=== PATIENT | female | born 1990 | race Caucasian/White ===

== ENCOUNTER 2018-04-04 15:33 | Emergency (ER) | payer BC ==
--- NOTE | 2018-04-04 15:53 | ER Report ---
History and Physical Time Seen By MD: 15:47 Hx. of Stated Complaint: headache, lower back pain HPI/ROS CHIEF COMPLAINT: headache and back pain HISTORY OF PRESENT ILLNESS: Pt on sunday slipped on ice and landed on her back and hit her head on the ground. Was witnessed by her . Pt had no loc per but does not recall the event. Pt has had nausuea, fatigue, dizziness since it occurred. PT also has pain in lower back since it occurred. No trouble with bowel or bladder. Pt using ibuprofen 600mg 4 x a day for discomfort. Pt has a remote hx of migraines and states that today the symptoms returned. + photophobia with her headache. Came her to be checked.back pain does radiate to r hip but not down leg. REVIEW OF SYSTEMS: Constitutional: No fever, no chills. Eyes: No discharge, + photophobia ENT: No sore throat. Cardiovascular: No chest pain, no palpitations. Respiratory: No cough, no shortness of breath. Gastrointestinal: No abdominal pain,+ nausea, no vomiting. Genitourinary: No hematuria. Musculoskeletal: + back pain. Skin: No rashes. Neurological: + headache Allergies: Coded Allergies: No Known Allergies (Verified Allergy, Unknown, 04/04/18) Past Medical/Surgical History Pmhx: insomnia, migraines Pshx: shoulder Reviewed Nurses Notes: Yes Hx Alcohol Use: No Constitutional Vital Sign - Last 24 Hours 04/04/18 04/04/18 04/04/18 04/04/18 15:33 15:38 15:42 15:45 Temp 98.4 Pulse 68 77 Resp 18 B/P (MAP) 118/75 (89) 118/75 112/55 (74) Pulse Ox 95 99 O2 Delivery Room Air Room Air 04/04/18 04/04/18 16:03 16:15 Pulse 65 B/P (MAP) 108/63 (78) Pulse Ox 96 O2 Delivery Room Air Physical Exam General Appearance: The patient is alert, has no immediate need for airway protection and no signs of toxicity. Eyes: Pupils equal and round no pallor or injection, EOMI, nl fundus exam ENT: no pharyngeal erythema or exudates, Mucous membranes are moist, TM are nl b/l, neg hemotympanums Respiratory: There are no retractions, lungs are clear to auscultation. Cardiovascular: Regular rate and rhythm. pulses are equal and symmetrical Gastrointestinal: Abdomen is soft and non tender, no masses, bowel sounds normal, no guarding, no rigidity or rebound Neurological: Cranial nerves II-XII grossly intact, no sensory or motor loss Skin: Warm and dry, no rashes. Musculoskeletal: Neck is supple non tender, no vertebral tenderness Extremities are nontender, nonswollen and have full range of motion. DIFFERENTIAL DIAGNOSIS: After history and physical exam differential diagnosis was considered for concussion, migraines, closed head injury, intracranial bleed, back contusion, compression fx, lumbar radiculopathy Medical Decision Making ED Course/Re-evaluation ED Course CT head and image spine PT refused test stating she has IUD and will sign a waiver. 04/04/2018 5:02:11 pm Spoke with pt at length about her imaging results. Pt initiallly refused pain medication but now would like something for her headache. Did offer IV for hydration and medication but prefers oral and then to go home. Will give a lortab. Will also give off of school tomorrow so she can rest. Decision to Disposition Date: Apr 04, 2018 Decision to Disposition Time: 17:03 Depart Departure Latest Vital Signs Vital Signs Date Time Temp Pulse Resp B/P (MAP) Pulse Ox O2 Delivery O2 Flow Rate FiO2 04/04/18 16:15 108/63 (78) 04/04/18 16:03 65 96 Room Air 04/04/18 15:42 98.4 18 Impression: Primary Impression: Concussion Additional Impressions: LOW BACK PAIN Migraine headache Condition: Condition Unchanged Disposition: HOME OR SELF-CARE Departure Forms: ER Transition Record, Medications Reconciliation, Off Work/School Form, School or Work Release?: School Number of days to be released: 2 Patient Portal Information Patient Instructions: Concussion (ED) Additional Instructions: Your cat scan and plain films did not show an acute injury. You do have a concussion. It is important to rest. TV, computers, reading can all worsen your headache. Motrin (advil, ibuprofen) 600mg every 8 hours as needed for headache. Hydrocodone with tylenol (script) one every 4 hours as needed for headache. Problem Qualifiers Primary Impression: Concussion Encounter type: initial encounter Loss of consciousness presence/duration: without LOC Qualified Codes: S06.0X0A - Concussion without loss of consciousness, initial encounter Additional Impressions: Migraine headache Migraine type: unspecified Status migrainosus presence: without status migrainosus Intractability: not intractable Qualified Codes: G43.909 - Migraine, unspecified, not intractable, without status migrainosus EDGAR YOUNG DO Apr 04, 2018 15:53
--- NOTE | 2018-04-04 16:15 | RADIOLOGY IMAGING REPORT ---
FACILITY: [facility] - [place] PATIENT NAME: Rosario Ambriz : 1990 MR: [id number] V: [id number] EXAM DATE: ORDERING PHYSICIAN: EDGAR YOUNG TECHNOLOGIST: Location: [facility] - [place] Patient: Rosario Ambriz : 1990 Visit/Account:[id number] Date of Sevice: 04/04/2018 XR THORACIC SPINE 3 V COMPARISONS: None. ADDITIONAL PERTINENT HISTORY: Fall onto back FINDINGS: Vertebral body heights and alignment: Minimal scoliotic curvature convex to the right centered at T7. Vertebral bodies: Negative. Disc spaces: Negative. Cervicothoracic junction: Negative. Surrounding soft tissues: Negative. IMPRESSION: 1. Minimal scoliotic curvature convex to the right centered at T7. 2. No acute appearing bony abnormalities. Report Dictated By: Anant Kidd MD at 04/04/2018 4:10 PM Report E-Signed By: Anant Kidd MD at 04/04/2018 4:11 PM WSN:[id number]
--- NOTE | 2018-04-04 16:18 | RADIOLOGY IMAGING REPORT ---
FACILITY: [facility] PATIENT NAME: Rosario Ambriz : 1990 MR: [id number] V: [id number] EXAM DATE: ORDERING PHYSICIAN: EDGAR YOUNG TECHNOLOGIST: Location: [facility] - [place] Patient: Rosario Ambriz : 1990 Visit/Account:[id number] Date of Sevice: 04/04/2018 L-SPINE >4 VIEWS INDICATION: Back pain after fall on ice. COMPARISON: None available FINDINGS: 4 views of the lumbar spine. There are 5 nonrib-bearing lumbar vertebral bodies. The vert ebral bodies are aligned. No compression fracture, bone lesion or spondylolysis. No degenerative webb ges. The endplates are maintained. Pedicles well seen. Soft tissues are unremarkable. IUD seen in the pelvis. IMPRESSION: Unremarkable exam. No acute abnormality. Report Dictated By: Otis Marion at 04/04/2018 4:10 PM Report E-Signed By: Otis Marion at 04/04/2018 4:12 PM WSN:[id number]
--- NOTE | 2018-04-04 16:31 | RADIOLOGY IMAGING REPORT ---
FACILITY: [facility] PATIENT NAME: Rosario Ambriz : 1990 MR: [id number] V: [id number] EXAM DATE: ORDERING PHYSICIAN: EDGAR YOUNG TECHNOLOGIST: Location: [facility] - [place] Patient: Rosario Ambriz : 1990 Visit/Account:[id number] Date of Sevice: 04/04/2018 EXAMINATION: Head CT without intravenous contrast HISTORY: Slipped on ice and hit head on Sunday. Posterior skull pain and headache. Light sensitivi ty. Nausea. COMPARISON: None. TECHNIQUE: Contiguous axial images were obtained from the skull base to the vertex without intraven ous contrast. Sagittal and coronal reformatted images are also submitted. One of the following dose optimization techniques was utilized in the performance of this exam: Autom ated exposure control; adjustment of the mA and/or kV according to the patient's size; or use of an i terative reconstruction technique. Specific details can be referenced in the facility's radiology C T exam operational policy. FINDINGS: Brain and intracranial structures: Ventricles and sulci are normal in size. The basal cisterns are p atent. Renteria-white matter differentiation is maintained. No midline shift, acute hemorrhage, acute infarct, or mass. Calvarium / scalp: Negative. No acute fracture. Skull base / visualized face: Negative. Visualized sinuses / orbits: Negative. IMPRESSION: No acute intracranial abnormality. Report Dictated By: Rogerio Dave MD at 04/04/2018 4:17 PM Report E-Signed By: Rogerio Dave MD at 04/04/2018 4:25 PM WSN:[id number]
[2018-04-04 17:00] VITALS: BP 103/65
[2018-04-04] MEDS ORDERED: APAP/HYDROCODONE 325/5 TAB PO ONE (17:05)
[2018-04-04] MEDS ORDERED: LOR5/325 PO (17:05)
== END 2018-04-04 17:16 | disposition home or self-care (01) ==
LOC: ER 15:41
DX: S06.0X0A Concussion without loss of consciousness, initial encounter (principal); G43.909 Migraine, unspecified, not intractable, without status migrainosus; M54.5 Low back pain
CPT/HCPCS: 70450; 72072; 72120; 99284